=== PATIENT | female | born 1970 | race Caucasian/White ===

== ENCOUNTER → 2016-09-26 | Outpatient (CLI) | payer OTHER ==
[~2016-09-26] MED LIST: APIX1TAB PO; ASPEC81 PO; CALC-20 PO; CARI350T28 PO; CITA20TA9 PO; CLON1TAB3 PO; DTR/5 PO; EVEN1000 PO; LOSA1TAB PO; OXYC-106 PO; PRLSR20 PO; VENL75CA73 PO; VITA400C15 PO; VITA400C3 PO
--- NOTE | 2016-09-28 09:13 | PULMONARY FUNCTION TEST ---
Spirometry and flow volume loops are within the limits of normal. Repeat study done following bronchodilator showed no significant change in function. Lung volumes show a decreased FRC, RV, and TLC. This would suggest a restrictive pattern, but does not correlate with spirometric findings. Consideration is given to the possibility of technical issues. Typically, spirometry is a more reliable indicator of function. Diffusion capacity is normal at 99% of predicted.
== END | disposition home or self-care (01) ==
LOC: C.RC 13:04
PROVIDERS: ATTEND Hospitalist
DX: R06.02 Shortness of breath (principal)

== ENCOUNTER 2016-11-24 18:30 | Emergency (ER) | payer OTHER ==
[~2016-11-24] VITALS: Ht 152.4 cm; Wt 66.3 kg
[~2016-11-24 18:30] MED LIST changes: -DTR/5 PO; +OXYB5TAB74 PO; -VITA400C3 PO
[2016-11-24 18:40] VITALS: TEMP 36.6; Ht 152.4 cm; Wt 66.3 kg
[2016-11-24] MEDS ORDERED: VITA400C3 PO (19:55)
--- NOTE | 2016-11-24 20:26 | EMERGENCY ROOM VISIT NOTE ---
ED Visit Note First contact with patient: 19:33 CHIEF COMPLAINT: Ears blocked and painful HISTORY OF PRESENT ILLNESS: This 46-year-old female presents the ER with chief complaint of not being able to hear very well at a trigger ears. She also admits to mild pain in both ears. The patient denies any dizziness. The patient states that she does use Q-tips in her ears. The patient denies any fever or any other upper respiratory symptoms. REVIEW OF SYSTEMS: 6 system review was performed and was negative unless stated otherwise in history of present illness. PMH: The patient is healthy; see chronic problem list. This was reviewed and there are no changes. SOCIAL HISTORY: Patient lives alone. PHYSICAL EXAM: Vital Signs: Were reviewed Reviewed Nurse's notes. GEN.: 46-year -old female appears in no acute distress. MENTAL Status: Alert and oriented 3. EARS: Right canal with out erythema or edema. Small amount of cerumen within the canal but able to visualize TM without erythema or fluid level. Left canal with cerumen unable to visualize TM. Canal without any erythema. EMERGENCY DEPARTMENT COURSE: The patient was evaluated. The patient's EMR medication list were reviewed. The cerumen was removed from the both ears with tap water irrigation delivered by an irrigating syringe by the nursing staff. Following irrigation canals were clear without erythema or edema. TM with good light reflex. The patient became dizzy after irrigation and therefore she sat for a period of time before she was discharged. DIAGNOSIS: Cerumen impaction of both ears DISCHARGE INSTRUCTIONS & TREATMENT: Wash the ear canals frequently with water when you bathe in the future. If you have recurrent problems recommend using [id number] Debrox drops which will help soften the wax that it will come out of your ears. Problem List Medical Problems: (1) Asthma Status: Chronic (2) Depression Status: Chronic (3) Fibromyalgia Status: Chronic (4) GERD (gastroesophageal reflux disease) Status: Chronic (5) Heart disease Status: Chronic (6) History of left heart catheterization (LHC) Status: Chronic (7) Hypertension Status: Chronic (8) Muscular degeneration Status: Chronic (9) Pulmonary emboli Status: Chronic Surgical Problems: (1) H/O heart artery stent Status: Chronic (2) H/O hernia repair Status: Chronic (3) H/O tubal ligation Status: Chronic (4) H/O: hysterectomy Status: Chronic (5) S/P cholecystectomy Status: Chronic Current/Historical Medications Scheduled Apixaban (Eliquis), 2.5 MG PO BID Aspirin (Aspirin EC Low Dose), 81 MG PO QAM Calcium Carbonate-Vitamin D (Calcium 600 + D), 1 TAB PO DAILY Carisoprodol (Soma), 350 MG PO BID Citalopram Hydrobromide (Celexa), 20 MG PO DAILY Losartan Potassium (Cozaar), 1 TAB PO DAILY Omeprazole (Prilosec), 20 MG PO DAILY Oxybutynin Chloride (Ditropan), 5 MG PO BID Venlafaxine Hcl (Venlafaxine Extended Rel), 75 MG PO DAILY Vitamin E (Vitamin E 400 Iu), 400 INTER.UNIT PO DAILY Scheduled PRN Clonazepam (Klonopin), 1 MG PO TID PRN for Anxiety Oxycodone/Acetaminophen 10MG/325MG (Percocet 10MG/325MG), 1 TAB PO Q6 PRN for Pain Allergies Coded Allergies: Lactose. (Verified Allergy, Severe, SHORTNESS OF BREATH, 10/07/15) Cat Dander (Verified Allergy, Unknown, asthma related sx, 10/07/15) Dog Dander (Verified Allergy, Unknown, asthma related sx, 10/07/15) Meloxicam (Verified Allergy, Unknown, ANAPHYLAXIS, 10/07/15) Vital Signs Date Time Temp Pulse Resp B/P (MAP) Pulse Ox O2 Delivery O2 Flow Rate FiO2 11/24/16 18:40 36.6 82 18 150/98 99 Room Air Departure Information Referrals No Doctor, Assigned (PCP) Patient Instructions [facility]
[2016-11-24 20:42] VITALS: BP 135/83; PULSE 88; O2SAT 98
== END 2016-11-24 20:42 | disposition home or self-care (01) ==
LOC: C.EDB 18:32 → C.EDD 20:42
DX: H61.23 Impacted cerumen, bilateral (principal); J45.909 Unspecified asthma, uncomplicated; F32.9 Major depressive disorder, single episode, unspecified; M79.7 Fibromyalgia; K21.9 Gastro-esophageal reflux disease without esophagitis; I10 Essential (primary) hypertension; Z95.5 Presence of coronary angioplasty implant and graft; Z98.51 Tubal ligation status; Z90.710 Acquired absence of both cervix and uterus; Z90.49 Acquired absence of other specified parts of digestive tract; Z79.82 Long term (current) use of aspirin; Z79.01 Long term (current) use of anticoagulants; Z79.899 Other long term (current) drug therapy